=== PATIENT | female | born 1995 | race Caucasian/White ===

== ENCOUNTER 2023-09-03 00:26 | Emergency (ER) | payer SELFPAY ==
[2023-09-03 00:30] VITALS: BP 136/86; PULSE 88; RESP 19; TEMP 36.4; O2SAT 98; BMI 36.0
[2023-09-03 00:36] VITALS: BP 136/86; PULSE 78; O2SAT 98
--- NOTE | 2023-09-03 00:44 | CT_ITS ---
PROCEDURE INFORMATION: Exam: CTA Head With Contrast, Arteriography Exam date and time: 09/03/2023 1:26 AM Age: 28 years old Clinical indication: Weakness; Additional info: Tingling/numbness L side, heaviness sensation on L TECHNIQUE: Imaging protocol: Computed tomographic angiography of the head with contrast. Exam focused on the arteries. 3D rendering (Not supervised by radiologist): MIP and/or 3D reconstructed images were created by the technologist. Radiation optimization: All CT scans at this facility use at least one of these dose optimization techniques: automated exposure control; mA and/or kV adjustment per patient size (includes targeted exams where dose is matched to clinical indication); or iterative reconstruction. Contrast material: ISOUVE 370; Contrast volume: 100 ml; Contrast route: INTRAVENOUS (IV); COMPARISON: CT HEAD/BRAIN WO CON 09/03/2023 1:12 AM FINDINGS: ANTERIOR CIRCULATION: Right internal carotid artery: Intracranial segment is patent with no significant stenosis. No aneurysm. Right middle cerebral artery: No occlusion or significant stenosis. No aneurysm. Right anterior cerebral artery: No occlusion or significant stenosis. No aneurysm. Left internal carotid artery: Intracranial segment is patent with no significant stenosis. No aneurysm. Left middle cerebral artery: No occlusion or significant stenosis. No aneurysm. Left anterior cerebral artery: No occlusion or significant stenosis. No aneurysm. POSTERIOR CIRCULATION: Right vertebral artery: No occlusion or significant stenosis. No aneurysm. Left vertebral artery: No occlusion or significant stenosis. No aneurysm. Basilar artery: No occlusion or significant stenosis. No aneurysm. Right posterior cerebral artery: No occlusion or significant stenosis. No aneurysm. Left posterior cerebral artery: No occlusion or significant stenosis. No aneurysm. Brain: No definite mass, mass effect, or midline shift. Cerebral ventricles: No ventriculomegaly. Bones/joints: No acute fracture. Soft tissues: Unremarkable. IMPRESSION: No acute large vessel occlusion identified.
--- NOTE | 2023-09-03 00:44 | CT_ITS ---
PROCEDURE INFORMATION: Exam: CTA Neck With Contrast Exam date and time: 09/03/2023 1:26 AM Age: 28 years old Clinical indication: Weakness; Additional info: Tingling/numbness L side, heaviness sensation on L TECHNIQUE: Imaging protocol: Computed tomographic angiography of the neck with contrast. Exam focused on the cervical segments of the vasculature. 3D rendering (Not supervised by radiologist): MIP and/or 3D reconstructed images were created by the technologist. Radiation optimization: All CT scans at this facility use at least one of these dose optimization techniques: automated exposure control; mA and/or kV adjustment per patient size (includes targeted exams where dose is matched to clinical indication); or iterative reconstruction. Contrast material: ISOUVE 370; Contrast volume: 100 ml; Contrast route: INTRAVENOUS (IV); COMPARISON: CT ANGIO HEAD 09/03/2023 1:26 AM FINDINGS: Right common carotid artery: No stenosis. No dissection or occlusion. Right internal carotid artery: No stenosis of the extracranial segment. No dissection or occlusion. Right external carotid artery: No visible occlusion. Left common carotid artery: No stenosis. No dissection or occlusion. Left internal carotid artery: No stenosis of the extracranial segment. No dissection or occlusion. Left external carotid artery: No visible occlusion. Right vertebral artery: No stenosis. No dissection or occlusion. Left vertebral artery: No stenosis. No dissection or occlusion. Soft tissues: No significant soft tissue swelling. Bones/joints: No acute fracture. IMPRESSION: No occlusion or significant stenosis. REFERENCES: NASCET CRITERIA. The degree of stenosis in the cervical segment of the internal carotid artery is based on NASCET criteria. Normal is no stenosis. Mild is less than 50% stenosis. Moderate is 50-69% stenosis. Severe is 70% to 99% stenosis. Total occlusion is no detectable patent lumen.
--- NOTE | 2023-09-03 00:44 | CT_ITS ---
PROCEDURE INFORMATION: Exam: CT Head Without Contrast Exam date and time: 09/03/2023 1:12 AM Age: 28 years old Clinical indication: Numbness / parasthesia; Left; Additional info: Tingling/numbness L side, heaviness sensation on L TECHNIQUE: Imaging protocol: Computed tomography of the head without contrast. Radiation optimization: All CT scans at this facility use at least one of these dose optimization techniques: automated exposure control; mA and/or kV adjustment per patient size (includes targeted exams where dose is matched to clinical indication); or iterative reconstruction. COMPARISON: No relevant prior studies available. FINDINGS: Brain: No acute infarct. No hemorrhage. Unremarkable white matter for age. No midline shift. Cerebral ventricles: No ventriculomegaly. Paranasal sinuses: No significant inflammation. No fluid levels. Mastoid air cells: No significant inflammation. Bones: No acute fracture. Soft tissues: Unremarkable. IMPRESSION: No acute intracranial abnormality.
--- NOTE | 2023-09-03 00:44 | ECG_ITS ---
APPROVED REPORT Exam: Resting ECG HR:76 bpm ECG Measurements Heart Rate 76 AXES DE 179 P 53 QRSd 98 QRS 82 QT 369 T 20 QTc 399 Conclusion SINUS RHYTHM NONSPECIFIC T-WAVE ABNORMALITY BORDERLINE ECG Isolated T wave inversion lead III Electronically signed by : LEONARD LUGO, 09/03/2023 06:39:50
--- NOTE | 2023-09-03 00:46 | [facility].EDGENADL ---
Discharge Plan Disposition Patient Disposition: Home, Self-Care Condition: Good Prescriptions Prescriptions: No Action No Known Home Medications Referrals Follow up/Referrals: Reyes Motley MD [Primary Care Provider] - See instructions Activity Restrictions/Add. Instructions Additional Instructions/Restrictions: You were evaluated in the ER. You are appropriate for discharge at this time. Make an appointment with your primary care physician for reevaluation and to discuss anxiety in the next week few days. Return to the ER with new, worsening, or otherwise concerning symptoms. Clinical Impressions Clinical Impression: Generalized weakness Discharge ED Provider: Hedy Bates Adult HPI General Chief complaint: Weakness Stated complaint: nausea, L side numb, dizziness, high heart rate Time Seen by Provider: 09/03/23 00:32 Mode of Arrival: Ambulatory Source of Information: Patient and Spouse Limitations: No Limitations Description of Symptoms (Recalled from ER Triage Doc. by RN): Patient reports that she's been having ongoing problems with fatigue and dizziness for 3-4 months. Patient reports that today she's had left sided weakness, that she describes as a heaviness with tingling sensations in her extremities. Patient states that she awoke with her heart racing and that is what prompted her to come to the ER. Patient denies chest pain, shortness of breath, headache, vomiting, but does endorse nausea. History of Present Illness HPI narrative: 28-year-old female presents to the ER with concerns of fatigue, generalized malaise for 3 to 4 months. She reports in that time she has also had a sensation of heaviness/weakness on her left side but she has not had any difficulties using the left side. She states that she had tingling in her left upper extremity today during the day, and tonight she awoke feeling like her heart was racing so patient and came to the ER for her to be evaluated. states he is concerned for heart attack like symptoms though patient denies any chest pain. She also denies any difficulty breathing. Patient reports she has not yet had studies for her hormones, but was supposed to have some labs done. Patient reports nausea but no vomiting or diarrhea, no abdominal pain, no headache, last period was last Monday. Patient states her symptoms at this time have subsided and she feels relatively normal. Patient and report that she had a tick bite on her back approximately 6 weeks ago, she had a 0.5 inch diameter red spot at that area for a few days, however it spontaneously resolved. She never had a target-like rash or other rash or symptoms. She does report intermittent blurry vision out of the left eye, however it is normal today. She does not wear contacts or corrective lenses Related Data Home Medications Medication Instructions Recorded Confirmed No Known Home Medications 09/03/23 09/03/23 Allergies Allergy/AdvReac Type Severity Reaction Status Date / Time No Known Allergies Allergy Verified 09/03/23 00:42 [facility] Disclaimer: The information contained in this section may have been updated after the patient was seen, as this information can be updated by other users. Medical History (Updated 09/03/23 @ 02:36 by Hedy Bates MD) No significant past medical history Surgical History (Updated 09/03/23 @ 00:42 by Melisa Dang RN) History of tonsillectomy Social History Smoking Status: Never smoker alcohol intake: never current occupational status: other Travel in the last 8 weeks: None ROS Obtained: Yes All systems reviewed & no additional complaints except as documented Constitutional Constitutional: Denies chills, Denies fever(s), Denies headache(s) and Reports weakness (generalized, weakness on the left side is described as heaviness) Eyes Eyes: Reports change in vision (intermittent blurriness L eye in the last few months, none today) ENT Ears, Nose, Mouth, and Throat: Denies dizziness, Denies headache(s), Denies nasal congestion and Denies sore throat Cardiovascular Cardiovascular: Denies chest pain, Denies dyspnea and Denies leg edema Respiratory Respiratory: Denies cough and Denies dyspnea Gastrointestinal Gastrointestingal: Reports nausea; Denies abdominal pain, constipation, diarrhea or vomiting Genitourinary Female Genitourinary: Denies dysuria Musculoskeletal Musculoskeletal: Denies arthralgias, Denies myalgias, Reports numbness (Subjective) and Reports tingling Integumentary/Breasts Skin/Breast: Denies change in pigmentation Neurologic Neurologic: Denies dizziness, Denies headache(s), Reports numbness (Subjective), Reports tingling and Reports weakness (generalized, weakness on the left side is described as heaviness) Physical Exam General General appearance: alert and in no apparent distress Head Head exam: atraumatic and normocephalic Eye Eye exam: Present PERRL, EOMI and other (Visual hoffmann intact, visual acuity OD 20/70, OS 20/25, both 20/25); Absent nystagmus ENT ENT exam: Present mucous membranes moist Neck Neck exam: Present normal inspection and full ROM Chest Chest inspection: Present symmetric chest wall rise Respiratory Respiratory exam: Present normal lung sounds bilaterally; Absent respiratory distress, wheezes or stridor Cardiovascular Cardiovascular exam: Present regular rate and normal rhythm Abdominal Exam Abdominal exam: Present soft; Absent distention, tenderness, guarding or rebound Extremities Exam Extremities exam: Present full ROM Neurological Exam Neurological exam: Present alert, oriented X3, CN II-XII intact, normal gait and other (Normal finger-nose and [id number], no pronator drift); Absent motor sensory deficit (5 out of 5 strength in all extremities, appropriate, intact 2 point discrimination in all extremities) Psychiatric Psychiatric exam: Present normal affect and normal mood Skin Skin exam: Present warm and dry; Absent rash (Complete skin exam negative for any rash or abnormal lesions) Medical Decision Making Phillip Inquiry Pt receiving controlled substance: No Vital Signs: 09/03/23 00:30 09/03/23 00:36 09/03/23 01:37 Temperature 97.6 F Temperature Source Oral Pulse Rate 78 74 Pulse Rate [Left Radial] 88 Respiratory Rate 19 Blood Pressure 136/86 133/75 Blood Pressure [Right Arm] 136/86 Blood Pressure Mean [Right Arm] 102 Blood Pressure Source [Right Arm] Automatic Cuff Blood Pressure Position [Right Arm] Sitting 02 Sat by Pulse Oximetry 98 98 99 Oxygen Delivery Method Room Air 09/03/23 02:00 Temperature Temperature Source Pulse Rate 76 Pulse Rate [Left Radial] Respiratory Rate 16 Blood Pressure 138/81 Blood Pressure [Right Arm] Blood Pressure Mean [Right Arm] Blood Pressure Source [Right Arm] Blood Pressure Position [Right Arm] 02 Sat by Pulse Oximetry 97 Oxygen Delivery Method Room Air Lab Data Lab Results 09/03/23 00:45: WBC 12.1 H, RBC 4.69, Hgb 13.3, Hct 40.8, MCV 86.8, MCH 28.4, MCHC 32.7, RDW 14.3, Plt Count 299, MPV 7.8, Neut % (Auto) 70.0, Lymph % (Auto) 25.5, [place] % (Auto) 3.0, Eos % (Auto) 1.0, Baso % (Auto) 0.7, Neut # (Auto) 8.4 H, Lymph # (Auto) 3.1, [place] # (Auto) 0.4, Eos # (Auto) 0.1, Baso # (Auto) 0.1, PT 10.6, INR 0.94, Sodium 138, Potassium 3.9, Chloride 108 H, Carbon Dioxide 27, Anion Gap 6.9, BUN 15, Creatinine 0.80, Estimated Creat Clear 155, Estimated GFR 84, Est GFR ( Amer) 102, Glucose 100, Calcium 9.5, Total Bilirubin 0.4, AST 25, ALT 16, Alkaline Phosphatase 78, Troponin I < 0.01, Total Protein 7.8, Albumin 4.4, Globulin 3.4 H, Albumin/Globulin Ratio 1.3, TSH 2.24, Free T4 1.11, Serum HCG, Qual Negative 09/03/23 00:45 09/03/23 00:45 Orders (Tests/Meds): ED MEDICATIONS Generic Name Dose Route Start Last Admin Trade Name Freq PRN Reason Stop Dose Admin Sodium Chloride 10 ml 09/03/23 01:32 09/03/23 01:35 Sodium Chloride 0.9% 10ml Syr (Rad Only) IV 10/03/23 01:31 10 ml NEEDED PRN Administration Maintain IV Site Discontinued Medications Generic Name Dose Route Start Last Admin Trade Name Freq PRN Reason Stop Dose Admin Iopamidol 100 ml 09/03/23 01:32 09/03/23 01:34 Iopamidol-370 (76%);100ml Bottle IV 09/03/23 01:33 100 ml ONCE ONE Administration Sodium Chloride 50 ml 09/03/23 01:32 09/03/23 01:34 0.9 % Sodium Chloride 50 Ml Vial IV 09/03/23 01:33 50 ml ONCE ONE Administration ORDERS Category Date Time Status CT angio head Stat Cat Scan 09/03/23 00:[address] angio neck Stat Cat Scan 09/03/23 00:[address] head/brain wo con Stat Cat Scan 09/03/23 00:44 Completed CBC w/Auto Diff [Complete Blood Count Auto Diff] Stat Lab 09/03/23 00:45 Completed CMP [Comprehensive Metabolic Panel] Stat Lab 09/03/23 00:45 Completed Free T4 (Free Thyroxine) Stat Lab 09/03/23 00:45 Completed HCG Qualitative, Serum Stat Lab 09/03/23 00:45 Completed PT INR [Prothrombin Time INR] Stat Lab 09/03/23 00:45 Completed TSH [Thyroid Stimulating Hormone] Stat Lab 09/03/23 00:45 Completed Trop I [Troponin I] Stat Lab 09/03/23 00:45 Completed Troponin I Q3H Lab 09/03/23 03:45 Ordered Troponin I Q3H Lab 09/03/23 06:45 Ordered ECG Request Stat Y 09/03/23 00:44 Ordered Medical Decision Narrative: In summary, this 28-year-old female presents to the emergency department today with subjective numbness, tingling, sensation of heaviness/weakness on the left side, intermittent blurriness of vision in the left eye, racing heart. On initial evaluation patient is hemodynamically stable, afebrile, cardiopulmonary exam benign, GCS 15, no neurologic deficits appreciated on exam, vision out of the left eye is actually better than the right, her vision is at baseline at this time according to the patient. Differential diagnosis includes but is not limited to thyroid abnormality, electrolyte abnormality, anxiety, I considered stroke though I did not appreciate any deficits on exam consistent with this, I did consider stenosis or other vascular abnormality that could cause situational strokelike symptoms, , anemia, arrhythmia, arrhythmogenic abnormality, I did do a full skin exam to rule out. Based on these concerns, I ordered serum labs, CT imaging, cardiac workup. ECG personally interpreted demonstrates normal sinus rhythm, rate 76, normal axis, normal ID and QTc, no STEMI. Labs personally reviewed demonstrate trace leukocytosis, no anemia, CMP with trace hyperchloremia but otherwise no actionable electrolyte abnormalities, good kidney and liver function, TSH and free T4 normal, test negative. Initial troponin undetectably low at less than 0.01. CT head personally interpreted does not demonstrate any acute intracranial abnormality such as bleed or mass, I do not appreciate any obvious vascular abnormality in the head or neck, see radiology read for final interpretation. On reassessment patient continues to be stable and symptom-free. She is appropriate for discharge at this time. I believe her symptoms are most likely attributed to anxiety in the setting of her overall reassuring workup. Patient was given instructions on symptomatic management, follow up instructions, and return precautions for the emergency department. Patient indicated understanding and was discharged in stable condition. Critical Care Critical Care Time Critical Care Time: No
[2023-09-03 00:53] LABS: Chloride 108 mmol/L (98-107); Potassium 3.9 mmoL/L (3.5-5.1); Sodium 138 mmol/L (136-145)
[2023-09-03 00:55] LABS: Basophils # 0.1 K/mm3 (0-0.2); Basophils % 0.7 % (0.1-2.0); Eosinophils # 0.1 K/mm3 (0.0-0.4); Hematocrit 40.8 % (37.0-47.0); Hemoglobin 13.3 g/dL (12.2-16.2); Lymphocytes # 3.1 K/mm3 (0.7-4.5); Lymphocytes % 25.5 % (10-50); Mean Corpuscular HGB Conc 32.7 g/dL (31.8-35.4); Mean Corpuscular Hemoglobin 28.4 pg (27.0-31.2); Mean Corpuscular Volume 86.8 fl (81-99); Mean Platelet Volume 7.8 fl (7.4-10.4); Monocytes # 0.4 K/mm3 (0.1-1.0); Neutrophils # 8.4 K/mm3 (1.8-7.8); Platelet Count 299 K/mm3 (142-424); Red Blood Count 4.69 M/mm3 (4.20-5.40); Red Cell Distribution Width 14.3 % (11.5-17.5); White Blood Count 12.1 K/mm3 (4.8-10.8)
[2023-09-03 00:56] LABS: Alanine Aminotransferase 16 U/L (12-78); Albumin Level 4.4 g/dl (3.5-5.0); Albumin/Globulin Ratio 1.3 (1.1-1.8); Alkaline Phosphatase 78 U/L (38-126); Anion Gap 6.9 mEq/L (5-15); Aspartate Amino Transferase 25 U/L (14-36); Bilirubin,Total 0.4 mg/dl (0.2-1.3); Blood Urea Nitrogen 15 mg/dl (7-17); Calcium 9.5 mg/dl (8.4-10.2); Carbon Dioxide 27 mmol/L (22.0-30.0); Creatinine Clearance Estimated 155 mL/min (50-200); Estimated Glomerular Filt Rate 84 ml/min (>60); GFR (African American) 102 ML/MIN (>60); Globulin 3.4 g/dL (1.3-3.2); Glucose 100 mg/dl (74-100); Total Protein,Serum 7.8 g/dl (6.3-8.2)
[2023-09-03 00:57] LABS: INR 0.94 (0.9-1.1); Prothrombin Time 10.6 seconds (10.1-12.5)
--- NOTE | 2023-09-03 00:59 | PC.NURSE ---
visual acuity test performed with patient standing appropriate distance away from visual acuity continuous improvement coordinator. Patient tested 20/25 in left eye with right eye covered, and 20/70 in right eye with left eye covered, with an acuity of 20/25 with both eyes open.
[2023-09-03 01:05] LABS: HCG Qualitative, Serum Negative (Negative)
[2023-09-03 01:09] LABS: Troponin I < 0.01 ng/ml (0.00-0.034)
--- NOTE | 2023-09-03 01:20 | PC.NURSE ---
patient back from radiology
[2023-09-03 01:22] LABS: Free T4 (Free Thyroxine) 1.11 ng/dl (0.78-2.19)
[2023-09-03 01:27] LABS: Thyroid Stimulating Hormone 2.24 uIU/mL (0.465-4.68)
[2023-09-03] MEDS: IOPAMIDOL-370 (76%);100ML BOTTLE 100 ML IV (01:34)
[2023-09-03] MEDS: 0.9 % SODIUM CHLORIDE 50 ML VIAL IV (01:34)
[2023-09-03] MEDS: SODIUM CHLORIDE 0.9% 10ML SYR (RAD ONLY) 10 ML IV (01:35)
[2023-09-03 01:37] VITALS: BP 133/75; PULSE 74; O2SAT 99
[2023-09-03 02:00] VITALS: BP 138/81; PULSE 76; RESP 16; O2SAT 97
[2023-09-03 02:30] VITALS: BP 131/79; PULSE 66; O2SAT 97
[2023-09-03 03:02] VITALS: BP 134/75; PULSE 74; RESP 18; TEMP 36.5; O2SAT 98
== END 2023-09-03 03:07 | disposition home or self-care (01) ==
LOC: ER 02:43
PROVIDERS: Emergency Provider Emergency Medicine; PCP Family Medicine
DX: R53.83 Other fatigue (principal); R20.0 Anesthesia of skin; R42 Dizziness and giddiness
CPT/HCPCS: 70450; 70496; 70498; 80050; 80053; 84439; 84443; 84484; 84703; 85025; 85610; 93005; 99285; Q9967